=== PATIENT | male | born 1955 | race African-American/Black ===

== ENCOUNTER 2024-02-26 08:11 | Emergency (ER) | payer MEDICARE, SELFPAY ==
--- NOTE | ~2024-02-26 | XR_ITS ---
EXAMINATION: XR femur LT min 2V DATE: 02/26/2024 10:05 INDICATION: Left hip pain. Fall. TECHNIQUE: 2 views of left femur on 4 radiographs were obtained. COMPARISON: None. FINDINGS: Bone alignment is normal. No fracture. There is advanced left hip osteoarthritis. Left knee joint spaces are normal. No left knee joint effusion. IMPRESSION: 1. Advanced left hip osteoarthritis. Reviewed, dictated and finalized at location A.
--- NOTE | ~2024-02-26 | CT_ITS ---
EXAMINATION: CT brain wo con INDICATION: Headache COMPARISON: None TECHNIQUE: Standard unenhanced head CT. The dose-length product (DLP) was 605.33 mGy-cm. The mA was a djusted according to patient size. Iterative reconstruction technique was employed. FINDINGS: No acute intraparenchymal hemorrhage. No evidence of mass lesion. No evidence of acute infa rction. 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 There is mild periventricular and subcortical hypodensity probably related to small v essel ischemic disease. There is mild prominence of the sulci and ventricles related to cerebral atro phy. Intracranial calcified cerebral atherosclerosis is noted. No extra-axial collections. No mass ef fect or midline shift. The orbits and soft tissues are unremarkable. The visualized sinuses and masto id air cells are well aerated. IMPRESSION: 1. Areas of prior infarction without acute intracranial abnormality. 2. Age related findings. Reviewed, dictated and finalized at location F.
--- NOTE | ~2024-02-26 | XR_ITS ---
EXAMINATION: XR hip LT 2V w AP pelvis INDICATION: Pain after fall TECHNIQUE: AP view the pelvis and two views of the left hip are obtained. COMPARISON: None available FINDINGS: Bone alignment is normal. There is no fracture. There is advanced osteoarthritis of the lef t hip and severe osteoarthritis of the right hip. IMPRESSION: 1. Osteoarthritis of the hips without acute osseous abnormality. Reviewed, dictated and finalized at location F.
--- NOTE | ~2024-02-26 | CT_ITS ---
EXAMINATION: CT cervical spine wo con DATE: 02/26/2024 09:54 INDICATION: Neck pain after injury TECHNIQUE: Computed tomography (CT) of the cervical spine was performed without intravenous contrast. The dose-length product was 404 mGy-cm. Automated exposure control and iterative reconstruction tech nique were employed. COMPARISON: None FINDINGS: There is degenerative disc disease at multiple levels, most advanced at C3-4 and C4-5. Ther e are prominent marginal osteophytes dorsally at C3-4 and C4-5. There is multilevel uncinate hypertro phy and facet hypertrophy. No acute fracture or traumatic malalignment. No evidence for perched facet . Craniovertebral junction is normal. Odontoid process is normal. No significant paraspinal soft tiss ue abnormality. Lung apices are unremarkable. IMPRESSION: 1. No acute abnormality of the cervical spine. 2: Severe cervical spondylosis. Reviewed, dictated and finalized at location L.
[2024-02-26 08:10] VITALS: BP 133/76; PULSE 66; RESP 14; TEMP 36.4; O2SAT 100
[2024-02-26 09:14] VITALS: BP 136/80; PULSE 67; RESP 13; O2SAT 100
--- NOTE | 2024-02-26 09:37 | ED.FALL ---
HPI - Fall General Chief Complaint: Fall Stated Complaint: FALL Time Seen by Provider: 02/26/24 09:01 History of Present Illness HPI Narrative: 68-year-old male presents with family at bedside for head injury that occurred prior to arrival. Patient states he was bending over to pick something up when he lost his balance and fell forward. He hit his head on the ground. He is reporting pain to his left hip and leg and laceration above his left eyebrow. He denies headache or neck pain, back pain, vision changes, focal numbness or weakness. Denies chest pain or shortness of breath before or after the fall. Denies other injuries acquired. States his tetanus is up-to-date. He is not anticoagulated. Related Data Allergies Allergy/AdvReac Type Severity Reaction Status Date / Time No Known Allergies Allergy Verified 02/26/24 08:26 Review of Systems Review of Systems: CONSTITUTIONAL: Denies fever, chills, or sweats. EYES: Denies visual changes, redness, or discharge. ENT: Denies rhinorrhea, congestion, sore throat, or otalgia. CARDIOVASCULAR: Denies chest pain, palpitations, or edema. RESPIRATORY: Denies cough or dyspnea. GASTROINTESTINAL: Denies abdominal pain, nausea, vomiting, or diarrhea. GENITOURINARY: Denies dysuria or hematuria. SKIN: See HPI MUSCULOSKELETAL: see HPI NEUROLOGIC: Denies headache, numbness, or weakness. PSYCHIATRIC: Denies anxiety or depression. Exam Narrative: GENERAL: Well-appearing, well-nourished, and in no acute distress. HEAD: Normocephalic, atraumatic. EYES: PERRLA and EOMI. ENT: Nares clear, no rhinorrhea or epistaxis. Mucous membranes moist. NECK: No midline cervical spinous tenderness, step-offs or deformities. BACK: No thoracolumbar spinous tenderness, step-offs or deformities. CHEST: Clear to auscultation. No respiratory distress. HEART: Regular rate and rhythm. No murmur heard. Normal peripheral pulses. ABDOMEN: Soft, nontender, nondistended, normal active bowel sounds. EXTREMITIES: LLE: Tenderness to the proximal and mid femur, worse with flexion of the hip. Full passive range of motion. No obvious deformities. DP pulse 2 +. Sensation intact. SKIN: 2 cm irregular laceration above the left eyebrow without active bleeding. No deep structures or foreign bodies visualized. NEURO: No focal deficits. Alert and oriented x3. Cranial nerves 2-12 intact. Strength 5/5 in BUE and BLE. Sensation intact throughout. Normal [id number]. No pronator drift. Course Vital Signs Vital signs: Vital Signs Temperature 97.6 F 02/26/24 08:10 Pulse Rate 66 02/26/24 08:10 Respiratory Rate 14 02/26/24 08:10 Blood Pressure 133/76 02/26/24 08:10 Pulse Oximetry 100 02/26/24 08:10 Oxygen Delivery Room Air 02/26/24 08:10 Temperature 97.6 F 02/26/24 08:10 Pulse Rate 69 02/26/24 10:15 Respiratory Rate 14 02/26/24 10:15 Blood Pressure 145/82 H 02/26/24 10:15 Pulse Oximetry 100 02/26/24 10:15 Oxygen Delivery Room Air 02/26/24 08:10 Procedures Laceration Laceration 1: Date: 02/26/24 Time: 10:38 Site: face Side (If applicable): left Size (cm): 2 Description: irregular and clean Depth: simple, single layer Local Anesthetic: lidocaine 1% and with epi Amount of anesthesia used (mL): 3 Pre-repair: wound explored, irrigated and irrigated extensively ====== Skin Level ====== Skin layer closed with: nylon Size (cm): 6-0 Number of sutures: 3 Technique: simple, interrupted ====== Subcutaneous Layer ====== ====== Muscle Layer ====== ====== Tendon Layer ====== MDM - Fall MDM Narrative Medical decision making narrative: 68-year-old male presents to the emergency department for ground level fall that occurred prior to arrival. See HPI for further history. Vital stable. Exam significant for the above. Tetanus is up-to-date. Offered
[2024-02-26 10:15] VITALS: BP 145/82; PULSE 69; RESP 14; O2SAT 100
[2024-02-26 11:10] VITALS: BP 136/80; PULSE 75; RESP 14; TEMP 36.4; O2SAT 100
== END 2024-02-26 11:09 | disposition home or self-care (01) ==
PROVIDERS: Emergency Provider Physician Assistant; PCP Internal Medicine
DX: S01.81XA Laceration without foreign body of other part of head, initial encounter (principal); S79.912A Unspecified injury of left hip, initial encounter; M16.0 Bilateral primary osteoarthritis of hip; M47.812 Spondylosis without myelopathy or radiculopathy, cervical region; W18.39XA Other fall on same level, initial encounter
CPT/HCPCS: 12011; 70450; 72125; 73502; 73552; 99284